=== PATIENT | female | born 1975 | race Two or more races ===

== ENCOUNTER 2018-03-22 14:32 | Outpatient (CLI) | payer OTHER ==
[~2018-03-22] VITALS: Ht 160 cm; Wt 70.8 kg
== END 2018-03-22 14:55 | disposition home or self-care (01) ==
LOC: OFIC 805 14:32
DX: H90.3 Sensorineural hearing loss, bilateral (principal); R49.0 Dysphonia; J39.2 Other diseases of pharynx

== ENCOUNTER → 2020-10-12 | Outpatient (CLI) | payer OTHER | END | disposition home or self-care (01) | LOC: OFIC 805 13:29 | PROVIDERS: ATTEND Otolaryngology | DX: H91.8X3 Other specified hearing loss, bilateral (principal) ==

== ENCOUNTER 2020-10-25 15:25 | Outpatient (CLI) | payer OTHER | END 2020-10-25 16:20 | disposition home or self-care (01) | LOC: OFIC 805 15:25 | PROVIDERS: ATTEND Otolaryngology Otology & Neurotology | DX: H91.8X3 Other specified hearing loss, bilateral (principal); H80.03 Otosclerosis involving oval window, nonobliterative, bilateral ==

== ENCOUNTER → 2020-12-20 | Outpatient (CLI) | payer OTHER ==
[~2020-12-20] MED LIST: CATAFLAN; CRESTOR20 MG PO; LEVOTHYROXINE25 MCG PO; NORFLEX; VITAL-D RX TAB1 EACH PO
== END | disposition home or self-care (01) ==
LOC: OFIC 805 15:35
PROVIDERS: ATTEND Otolaryngology Otology & Neurotology
DX: H90.6 Mixed conductive and sensorineural hearing loss, bilateral (principal); H80.03 Otosclerosis involving oval window, nonobliterative, bilateral; H90.0 Conductive hearing loss, bilateral

== ENCOUNTER → 2021-01-31 08:00 | Outpatient (CLI) | payer OTHER | END | disposition home or self-care (01) | LOC: LAB 08:00 → ADM 08:15 → CIR.AMB 02-04 08:15 → EDSTATUS 02-04 08:15 | PROVIDERS: ATTEND Otolaryngology Otology & Neurotology | DX: I10 Essential (primary) hypertension (principal); H90.0 Conductive hearing loss, bilateral; Z03.818 Encounter for observation for suspected exposure to other biological agents ruled out; H80.91 Unspecified otosclerosis, right ear; I25.2 Old myocardial infarction ==

== ENCOUNTER 2021-04-08 05:20 | Day surgery (SDC) | payer OTHER ==
[~2021-04-08 05:20] MED LIST changes: +SYNTHROID50 MCG PO
[2021-04-08] MEDS ORDERED: AMOXICILLIN500 MG PO (09:33)
[2021-04-08] MEDS ORDERED: CILOXAN5 ML OTIC (09:33)
== END 2021-04-08 13:15 | disposition home or self-care (01) ==
LOC: CIR.AMB 05:20
PROVIDERS: ATTEND Otolaryngology Otology & Neurotology
DX: H90.0 Conductive hearing loss, bilateral (principal); H90.6 Mixed conductive and sensorineural hearing loss, bilateral; Z20.822 Contact with and (suspected) exposure to COVID-19